=== PATIENT | male | born 1935 | race Caucasian/White ===

== ENCOUNTER 2017-10-08 11:03 | Inpatient (IN) | payer MEDICARE, BC ==
[~2017-10-08] VITALS: Ht 182.9 cm; Wt 84.0 kg
[~2017-10-08 11:03] MED LIST: ACET-2615 PO; ALT5C PO; ASPI-611 PO; CHOL400T PO; CIPR500T24 PO; FENO54TA PO; FLO0.4C PO; LACTC PO; LYSI500T40 PO; MULT-933 PO; OMEG-107 PO; OMEP10CA4 PO; PREG200C PO
[2017-10-08] MEDS ORDERED: normal saline 1000ML IV soln IVB ONE (11:25)
[2017-10-08] MEDS ORDERED: ondansetron/PF 4mg/2ml inj IV ONE (11:25)
[2017-10-08] MEDS ORDERED: bisacodyl 10mg suppository rectal RC STA (11:28)
[2017-10-08 12:08] LABS: BASOPHILS % (AUTO) 0.2 % (0-1); EOSINOPHILS % (AUTO) 0.2 % (0-6); HEMATOCRIT 46.5 % (42.0-52.0); HEMOGLOBIN 15.3 g/dl (14.0-17.9); LYMPHOCYTES # (AUTO) 0.7 X10'3 (1.1-4.8); LYMPHOCYTES % (AUTO) 5.4 % (21-51); MEAN CORPUSCULAR HEMOGLOBIN 27.2 PG (27.0-31.0); MEAN CORPUSCULAR HGB CONC 32.9 % (33.0-36.5); MEAN CORPUSCULAR VOLUME 82.4 FL (78-98); MEAN PLATELET VOLUME 10.5 FL (7.4-10.4); MONOCYTES # (AUTO) 0.1 X10'3 (0-0.9); NEUTROPHILS # (AUTO) 11.3 X10'3 (1.8-7.7); NEUTROPHILS % (AUTO) 93.2 % (42-75); PLATELET COUNT 169 X10'3 (140-440); RED BLOOD COUNT 5.64 X10'6 (4.70-6.10); RED CELL DISTRIBUTION WIDTH 15.8 % (11.5-14.5); WHITE BLOOD COUNT 12.1 X10'3 (4.5-11.0)
[2017-10-08 12:12] LABS: ALANINE AMINOTRANSFERASE 21 U/L (12-78); ALBUMIN 3.6 G/DL (3.4-5.0); ALBUMIN/GLOBULIN RATIO 0.8 (1.1-1.5); ALKALINE PHOSPHATASE 69 IU/L (46-116); ANION GAP 10 (8-16); ASPARTATE AMINO TRANSFERASE 30 U/L (10-37); BILIRUBIN,TOTAL 0.6 MG/DL (0.1-1.0); BLOOD UREA NITROGEN 19 MG/DL (7-18); BUN/CREATININE RATIO 17.8 (5.4-32.0); CALCIUM 9.7 MG/DL (8.5-10.1); CHLORIDE 99 MMOL/L (99-107); CREATININE 1.07 MG/DL (0.60-1.10); GLUCOSE 133 MG/DL (70-104); LIPASE 223 U/L (73-393); SODIUM 135 MMOL/L (135-145); TOTAL CARBON DIOXIDE 26.5 MMOL/L (24-32); eGFR 66 ML/MIN
[2017-10-08 12:20] LABS: POTASSIUM 4.5 MMOL/L (3.5-5.1)
[2017-10-08 12:32] LABS: TOTAL CELLS COUNTED 100
[2017-10-08 12:33] LABS: PLATELET ESTIMATE NORMAL
[2017-10-08 12:35] LABS: ANISOCYTOSIS 1+; LARGE PLATELETS FEW
[2017-10-08 12:36] LABS: TOXIC GRANULATION 1+; TOXIC VACUOLATION 1+
[2017-10-08] MEDS ORDERED: metoclopramide 5 mg/ml inj IV ONE (13:05)
[2017-10-08] MEDS ORDERED: morphine 2 MG/ML inj. syringe IV PRN ×3 (14:00→19:30)
[2017-10-08] MEDS ORDERED: potassium Cl 40MEQ/NS 500ml 500 ML IV PRN ×2 (14:00)
[2017-10-08] MEDS ORDERED: potassium Cl 20 mEq SR tablet PO PRN ×2 (14:00)
[2017-10-08] MEDS ORDERED: magnesium 2GM in 50ml NS 50 ML IV PRN (14:00)
[2017-10-08] MEDS ORDERED: magnesium hydroxide 30ml (MOM) UD suspension PO PRN (14:00)
[2017-10-08] MEDS ORDERED: magnesium 4gm in 100ml NS 100 ML IV PRN (14:00)
[2017-10-08] MEDS ORDERED: magnesium Cl slow-release 64mg tablet PO PRN (14:00)
[2017-10-08] MEDS ORDERED: acetaminophen 650mg rectal suppository RC PRN (14:00)
[2017-10-08] MEDS ORDERED: mag hydrox/Alum hydrox/simeth 30ml oral suspension PO PRN (14:00)
[2017-10-08] MEDS ORDERED: BUPRENORPHINE 5 MCG/HR TP SCH (14:10)
[2017-10-08] MEDS ORDERED: hydrALAZINE 20mg/ml inj. IV PRN (14:20)
[2017-10-08] MEDS ORDERED: morphine 4 MG/ML inj SYRINge IV PRN ×2 (15:12)
[2017-10-08] MEDS: normal saline 1000ml 1,000 ML IV SCH (15:34)
[2017-10-08] MEDS ORDERED: BUPR1PAT3 (17:22)
[2017-10-08] MEDS: ondansetron/PF 4mg/2ml inj IV PRN (18:02)
[2017-10-08 18:52] LABS: CLARITY,URINE CLEAR (Clear); COLOR,URINE YELLOW (Yellow); GLUCOSE, URINE NEGATIVE (Neg); KETONES,URINE NEGATIVE (Neg); LEUKOCYTE ESTERASE ,URINE NEGATIVE (Neg); NITRITES, URINE NEGATIVE (Neg); OCCULT BLOOD,URINE SMALL (Neg); PROTEIN,URINE 30 mg/dl (Neg); UROBILINOGEN,URINE 0.2 E.U/dL (0.2-1.0)
[2017-10-08 18:57] LABS: UA COLLECTION TYPE CLN CATCH MIDSTREAM
[2017-10-08 18:58] LABS: BACTERIA,URINE NONE SEEN /HPF (Neg); RBC,URINE 0-2 /HPF (0-2); SQUAMOUS EPITHELIAL CELL,UR NONE SEEN /LPF (FEW); WBC,URINE 0-4 /HPF (0-4)
[2017-10-08 19:40] LABS: PROTHROMBIN TIME 10.7 SECONDS (9.0-12.0)
[2017-10-08] MEDS: morphine 4 MG/ML inj SYRINge IV PRN ×2 (20:03→22:19)
[2017-10-08] MEDS: heparin, porcine 5000 units/ml vial SQ SCH (20:04)
[2017-10-09] VITALS: BP 156/72
[2017-10-09] MEDS: normal saline 1000ml 1,000 ML IV SCH ×3 (03:16→18:07)
[2017-10-09] MEDS: ondansetron/PF 4mg/2ml inj IV PRN (03:26)
[2017-10-09 05:31] LABS: BASOPHILS % (AUTO) 0.3 % (0-1); EOSINOPHILS # (AUTO) 0.1 X10'3 (0-0.9); HEMATOCRIT 44.7 % (42.0-52.0); HEMOGLOBIN 14.4 g/dl (14.0-17.9); LYMPHOCYTES # (AUTO) 0.8 X10'3 (1.1-4.8); LYMPHOCYTES % (AUTO) 6.4 % (21-51); MEAN CORPUSCULAR HEMOGLOBIN 26.5 PG (27.0-31.0); MEAN CORPUSCULAR HGB CONC 32.3 % (33.0-36.5); MEAN CORPUSCULAR VOLUME 82.2 FL (78-98); MEAN PLATELET VOLUME 9.8 FL (7.4-10.4); MONOCYTES # (AUTO) 0.5 X10'3 (0-0.9); MONOCYTES % (AUTO) 4.5 % (2-12); NEUTROPHILS # (AUTO) 10.3 X10'3 (1.8-7.7); NEUTROPHILS % (AUTO) 87.8 % (42-75); PLATELET COUNT 168 X10'3 (140-440); RED BLOOD COUNT 5.44 X10'6 (4.70-6.10); RED CELL DISTRIBUTION WIDTH 16.2 % (11.5-14.5); WHITE BLOOD COUNT 11.7 X10'3 (4.5-11.0)
[2017-10-09 05:51] LABS: ALANINE AMINOTRANSFERASE 19 U/L (12-78); ALBUMIN/GLOBULIN RATIO 0.8 (1.1-1.5); ALKALINE PHOSPHATASE 58 IU/L (46-116); ANION GAP 8 (8-16); ASPARTATE AMINO TRANSFERASE 24 U/L (10-37); BILIRUBIN,TOTAL 0.7 MG/DL (0.1-1.0); BLOOD UREA NITROGEN 25 MG/DL (7-18); BUN/CREATININE RATIO 20.5 (5.4-32.0); CALCIUM 8.9 MG/DL (8.5-10.1); CHLORIDE 104 MMOL/L (99-107); CREATININE 1.22 MG/DL (0.60-1.10); GLUCOSE 120 MG/DL (70-104); MAGNESIUM 1.6 MG/DL (1.5-2.4); POTASSIUM 4.6 MMOL/L (3.5-5.1); SODIUM 139 MMOL/L (135-145); TOTAL PROTEIN 6.8 G/DL (6.4-8.2); eGFR 57 ML/MIN
[2017-10-09 06:00] VITALS: BP 103/52
[2017-10-09] MEDS: heparin, porcine 5000 units/ml vial SQ SCH ×2 (07:54→20:24)
[2017-10-09] MEDS: K and/or MAG REPLACEMENT MC SCH (07:59)
[2017-10-09] MEDS ORDERED: pneumococcal 23-VAL P-sac vacc 25 mcg/0.5ml vial IMVAC ONE (10:00)
[2017-10-09] MEDS: morphine 4 MG/ML inj SYRINge IV PRN ×4 (15:13→23:40)
[2017-10-09 19:00] VITALS: BP 151/71
[2017-10-10] VITALS: BP 157/75
[2017-10-10] MEDS: morphine 4 MG/ML inj SYRINge IV PRN ×4 (01:53→17:29)
[2017-10-10] MEDS ORDERED: pantoprazole 40 MG vial IV ONE (02:55)
[2017-10-10 04:33] LABS: BASOPHILS % (AUTO) 0.6 % (0-1); EOSINOPHILS # (AUTO) 0.1 X10'3 (0-0.9); EOSINOPHILS % (AUTO) 1.5 % (0-6); HEMATOCRIT 42.2 % (42.0-52.0); LYMPHOCYTES # (AUTO) 1.1 X10'3 (1.1-4.8); LYMPHOCYTES % (AUTO) 12.9 % (21-51); MEAN CORPUSCULAR HEMOGLOBIN 26.9 PG (27.0-31.0); MEAN CORPUSCULAR HGB CONC 33.1 % (33.0-36.5); MEAN CORPUSCULAR VOLUME 81.1 FL (78-98); MONOCYTES # (AUTO) 0.4 X10'3 (0-0.9); MONOCYTES % (AUTO) 4.5 % (2-12); NEUTROPHILS # (AUTO) 6.9 X10'3 (1.8-7.7); NEUTROPHILS % (AUTO) 80.5 % (42-75); PLATELET COUNT 160 X10'3 (140-440); RED CELL DISTRIBUTION WIDTH 16.4 % (11.5-14.5); WHITE BLOOD COUNT 8.6 X10'3 (4.5-11.0)
[2017-10-10 04:47] LABS: ALANINE AMINOTRANSFERASE 21 U/L (12-78); ALBUMIN/GLOBULIN RATIO 0.8 (1.1-1.5); ALKALINE PHOSPHATASE 55 IU/L (46-116); ANION GAP 12 (8-16); ASPARTATE AMINO TRANSFERASE 38 U/L (10-37); BILIRUBIN,TOTAL 0.6 MG/DL (0.1-1.0); BLOOD UREA NITROGEN 24 MG/DL (7-18); BUN/CREATININE RATIO 22.6 (5.4-32.0); CALCIUM 9.4 MG/DL (8.5-10.1); CHLORIDE 105 MMOL/L (99-107); CREATININE 1.06 MG/DL (0.60-1.10); GLUCOSE 78 MG/DL (70-104); MAGNESIUM 1.5 MG/DL (1.5-2.4); POTASSIUM 4.2 MMOL/L (3.5-5.1); SODIUM 141 MMOL/L (135-145); TOTAL PROTEIN 6.9 G/DL (6.4-8.2); eGFR 67 ML/MIN
[2017-10-10] MEDS ORDERED: diatrozoate meglu/diatrozoate sod (37% iodine) 120ML oral solution PO ONE (07:00)
[2017-10-10 07:30] VITALS: BP 163/79
[2017-10-10] MEDS ORDERED: diatr meglu/diatrizoate 30ml oral sol.-(3 dose) bottle PO ONE (07:35)
[2017-10-10] MEDS: heparin, porcine 5000 units/ml vial SQ SCH ×2 (07:40→19:42)
[2017-10-10] MEDS: pantoprazole 40 MG vial IV SCH (07:40)
[2017-10-10] MEDS: K and/or MAG REPLACEMENT MC SCH (07:41)
[2017-10-10] MEDS: normal saline 1000ml 1,000 ML IV SCH ×2 (10:40→14:54)
[2017-10-10 12:17] VITALS: BP 163/69
[2017-10-10] MEDS: pregabalin 75mg capsule PO SCH (19:41)
[2017-10-10] MEDS: pregabalin 25mg capsule PO SCH (19:41)
[2017-10-10 20:00] VITALS: BP 178/80
[2017-10-10] MEDS ORDERED: diphenhydrAMINE 25mg capsule PO PRN (20:35)
[2017-10-10] MEDS ORDERED: methylPREDNISolone sod succ 125mg/2ml vial IV ONE (20:35)
[2017-10-10] MEDS ORDERED: diphenhydrAMINE 50 mg/ml inj IM ONE (20:35)
[2017-10-10 21:00] VITALS: BP 158/78
[2017-10-10] MEDS ORDERED: diphenhydrAMINE 50 mg/ml inj IV ONE (21:00)
[2017-10-11] VITALS: BP 156/75
[2017-10-11] MEDS: morphine 4 MG/ML inj SYRINge IV PRN (00:26)
[2017-10-11] MEDS: normal saline 1000ml 1,000 ML IV SCH (00:32)
[2017-10-11 06:27] LABS: BASOPHILS % (AUTO) 0 % (0-1); EOSINOPHILS % (AUTO) 0.7 % (0-6); HEMATOCRIT 41.3 % (42.0-52.0); HEMOGLOBIN 13.8 g/dl (14.0-17.9); LYMPHOCYTES # (AUTO) 0.6 X10'3 (1.1-4.8); LYMPHOCYTES % (AUTO) 10.1 % (21-51); MEAN CORPUSCULAR HEMOGLOBIN 27.2 PG (27.0-31.0); MEAN CORPUSCULAR HGB CONC 33.3 % (33.0-36.5); MEAN CORPUSCULAR VOLUME 81.5 FL (78-98); MEAN PLATELET VOLUME 10.6 FL (7.4-10.4); MONOCYTES % (AUTO) 0.6 % (2-12); NEUTROPHILS # (AUTO) 4.9 X10'3 (1.8-7.7); NEUTROPHILS % (AUTO) 88.6 % (42-75); PLATELET COUNT 148 X10'3 (140-440); RED BLOOD COUNT 5.07 X10'6 (4.70-6.10); RED CELL DISTRIBUTION WIDTH 15.8 % (11.5-14.5); WHITE BLOOD COUNT 5.6 X10'3 (4.5-11.0)
[2017-10-11 06:33] LABS: ALANINE AMINOTRANSFERASE 23 U/L (12-78); ALBUMIN/GLOBULIN RATIO 0.8 (1.1-1.5); ALKALINE PHOSPHATASE 56 IU/L (46-116); ANION GAP 12 (8-16); ASPARTATE AMINO TRANSFERASE 48 U/L (10-37); BILIRUBIN,TOTAL 0.5 MG/DL (0.1-1.0); BLOOD UREA NITROGEN 19 MG/DL (7-18); BUN/CREATININE RATIO 19.8 (5.4-32.0); CALCIUM 9.3 MG/DL (8.5-10.1); CHLORIDE 106 MMOL/L (99-107); CREATININE 0.96 MG/DL (0.60-1.10); GLUCOSE 149 MG/DL (70-104); MAGNESIUM 1.3 MG/DL (1.5-2.4); POTASSIUM 4.2 MMOL/L (3.5-5.1); SODIUM 143 MMOL/L (135-145); TOTAL PROTEIN 6.9 G/DL (6.4-8.2); eGFR 75 ML/MIN
[2017-10-11] MEDS ORDERED: pantoprazole 40mg Tablet.DR PO SCH (07:30)
[2017-10-11 07:57] LABS: LARGE PLATELETS FEW; PLATELET ESTIMATE NORMAL
[2017-10-11 08:00] VITALS: BP 148/70
[2017-10-11] MEDS ORDERED: tamsulosin 0.4mg capsule PO SCH (08:00)
[2017-10-11] MEDS: pantoprazole 40 MG vial IV SCH (08:00)
[2017-10-11] MEDS ORDERED: fenofibrate 48mg tablet PO SCH (08:00)
[2017-10-11] MEDS: pregabalin 75mg capsule PO SCH (08:19)
[2017-10-11] MEDS: pregabalin 25mg capsule PO SCH (08:19)
[2017-10-11] MEDS: heparin, porcine 5000 units/ml vial SQ SCH (08:21)
[2017-10-11] MEDS: K and/or MAG REPLACEMENT MC SCH (08:38)
[2017-10-12] MEDS ORDERED: BUPRENORPHINE 20 MCG/HR TP SCH (09:00)
[2017-10-12] MEDS ORDERED: [UNRECOGNIZED DRUG - REMARK] TD SCH (09:00)
[2017-10-12] MEDS ORDERED: BUPRENORPHINE 5 MCG/HR TP SCH (09:00)
== END 2017-10-11 13:12 | disposition home or self-care (01) | DRG 394 ==
LOC: ER 11:04 → ED HOLD 13:56 → EDBEDREQ 20:56 → SUR 3N 21:50
PROVIDERS: ADMIT Family Medicine; ATTEND Internal Medicine
PROC: BW211ZZ Computerized Tomography (CT Scan) of Abdomen and Pelvis using Low Osmolar Contrast (ICD-10-PCS; principal; 2017-10-10)
DX: K94.09 Other complications of colostomy (principal); K56.699 Other intestinal obstruction unspecified as to partial versus complete obstruction; G62.9 Polyneuropathy, unspecified; Z95.1 Presence of aortocoronary bypass graft; E78.00 Pure hypercholesterolemia, unspecified; I25.10 Atherosclerotic heart disease of native coronary artery without angina pectoris; I10 Essential (primary) hypertension; J45.909 Unspecified asthma, uncomplicated; Y83.8 Other surgical procedures as the cause of abnormal reaction of the patient, or of later complication, without mention of misadventure at the time of the procedure; I25.2 Old myocardial infarction; Z90.49 Acquired absence of other specified parts of digestive tract; Z91.013 Allergy to seafood; Z88.8 Allergy status to other drugs, medicaments and biological substances; Z80.0 Family history of malignant neoplasm of digestive organs; Z80.6 Family history of leukemia; Z79.82 Long term (current) use of aspirin; Z79.899 Other long term (current) drug therapy
CPT/HCPCS: 36415; 74176; 80053; 81001; 83690; 83735; 85025; 85610; 87070; 93005; 96361; 96374; 99285; A6258; C9113; J1200; J1644; J2270; J2405; J2930; J3475; J7030; Q0163; Q9963

== ENCOUNTER 2018-01-16 12:59 | Emergency (ER) | payer MEDICARE, BC ==
[~2018-01-16] VITALS: Ht 182.9 cm; Wt 72.7 kg
[~2018-01-16 12:59] MED LIST changes: +BUPR1PAT3; -CHOL400T PO; -CIPR500T24 PO
[2018-01-16] MEDS ORDERED: LIDOcaine 1% 30ml preserv. free vial IJ ONE (13:25)
[2018-01-16] MEDS ORDERED: TETanus/Pertussis (Acell)/Diphther VAC/PF (Tdap-Adult) 0.5ml syringe IM ONE (13:25)
[2018-01-16 15:18] VITALS: BP 123/74
== END 2018-01-16 15:26 | disposition home or self-care (01) ==
LOC: ER 12:59
DX: S06.0X0A Concussion without loss of consciousness, initial encounter (principal); S01.81XA Laceration without foreign body of other part of head, initial encounter; W18.30XA Fall on same level, unspecified, initial encounter; Y93.89 Activity, other specified; Y92.89 Other specified places as the place of occurrence of the external cause; Y99.8 Other external cause status
CPT/HCPCS: 12052; 70450; 90471; 90715; 99284; A6449; J3490; 96372

== ENCOUNTER 2018-04-17 10:11 | Observation (INO) | payer MEDICARE, BC ==
[~2018-04-17] VITALS: Ht 182.9 cm; Wt 72.7 kg
[2018-04-17 10:43] LABS: BASOPHILS % (AUTO) 0.1 % (0-1); EOSINOPHILS # (AUTO) 0.2 X10'3 (0-0.9); EOSINOPHILS % (AUTO) 2.2 % (0-6); HEMATOCRIT 48.1 % (42.0-52.0); HEMOGLOBIN 15.5 g/dl (14.0-17.9); LYMPHOCYTES # (AUTO) 0.9 X10'3 (1.1-4.8); LYMPHOCYTES % (AUTO) 9.3 % (21-51); MEAN CORPUSCULAR HEMOGLOBIN 27.5 PG (27.0-31.0); MEAN CORPUSCULAR HGB CONC 32.3 % (33.0-36.5); MEAN CORPUSCULAR VOLUME 85.1 FL (78-98); MEAN PLATELET VOLUME 11.2 FL (7.4-10.4); MONOCYTES # (AUTO) 0.3 X10'3 (0-0.9); MONOCYTES % (AUTO) 3.3 % (2-12); NEUTROPHILS # (AUTO) 8.2 X10'3 (1.8-7.7); NEUTROPHILS % (AUTO) 85.1 % (42-75); PLATELET COUNT 149 X10'3 (140-440); RED BLOOD COUNT 5.65 X10'6 (4.70-6.10); RED CELL DISTRIBUTION WIDTH 15.8 % (11.5-14.5); WHITE BLOOD COUNT 9.6 X10'3 (4.5-11.0)
[2018-04-17 11:03] LABS: INR 1.1 INR; PROTHROMBIN TIME 10.9 SECONDS (9.0-12.0)
[2018-04-17 11:19] LABS: ALANINE AMINOTRANSFERASE 13 U/L (12-78); ALBUMIN 3.6 G/DL (3.4-5.0); ALBUMIN/GLOBULIN RATIO 0.8 (1.1-1.5); ALKALINE PHOSPHATASE 70 IU/L (46-116); ANION GAP 8 (8-16); ASPARTATE AMINO TRANSFERASE 22 U/L (10-37); BILIRUBIN,TOTAL 0.5 MG/DL (0.1-1.0); BLOOD UREA NITROGEN 29 MG/DL (7-18); BUN/CREATININE RATIO 23.4 (5.4-32.0); CHLORIDE 100 MMOL/L (99-107); CREATININE 1.24 MG/DL (0.60-1.10); GLUCOSE 129 MG/DL (70-104); LIPASE 243 U/L (73-393); POTASSIUM 5.1 MMOL/L (3.5-5.1); SODIUM 135 MMOL/L (135-145); TOTAL CARBON DIOXIDE 27.2 MMOL/L (24-32); TOTAL PROTEIN 8.1 G/DL (6.4-8.2); eGFR 56 ML/MIN
[2018-04-17 12:44] LABS: LARGE PLATELETS FEW; PLATELET ESTIMATE NORMAL
[2018-04-17] MEDS ORDERED: magnesium Cl slow-release 64mg tablet PO PRN (12:50)
[2018-04-17] MEDS ORDERED: HYDROcodone/acetaminophen 5mg/325mg tablet PO PRN (12:50)
[2018-04-17] MEDS ORDERED: ondansetron/PF 4mg/2ml inj IV PRN (12:50)
[2018-04-17] MEDS ORDERED: acetaminophen 325mg tablet PO PRN ×2 (12:50)
[2018-04-17] MEDS ORDERED: magnesium 1gm/100ml D5W IVPB 100 ML IV PRN (12:50)
[2018-04-17] MEDS ORDERED: potassium Cl 40MEQ/NS 500ml 500 ML IV PRN ×2 (12:50)
[2018-04-17] MEDS ORDERED: morphine 2 MG/ML inj. syringe IV PRN (12:50)
[2018-04-17] MEDS ORDERED: magnesium 4gm in 100ml NS 100 ML IV PRN (12:50)
[2018-04-17] MEDS ORDERED: mag hydrox/Alum hydrox/simeth 30ml oral suspension PO PRN (12:50)
[2018-04-17] MEDS ORDERED: docusate sod 100mg capsule PO PRN (12:50)
[2018-04-17] MEDS ORDERED: potassium Cl 20 mEq SR tablet PO PRN ×2 (12:50)
[2018-04-17] MEDS: normal saline 1000ml 1,000 ML IV SCH (14:29)
[2018-04-17 15:30] VITALS: BP 103/43
[2018-04-17 18:00] VITALS: BP 104/58
[2018-04-17] MEDS ORDERED: non-formulary drug (Acetaminophen (Tylenol Extra Strength) 2 TAB) PO PRN (18:40)
[2018-04-17] MEDS ORDERED: temazepam 15mg capsule PO PRN (21:00)
[2018-04-17] MEDS: heparin, porcine 5000 units/ml vial SQ SCH (21:28)
[2018-04-17] MEDS: pregabalin 25mg capsule PO SCH (21:29)
[2018-04-18] VITALS: BP 100/48
[2018-04-18] MEDS: normal saline 1000ml 1,000 ML IV SCH (03:22)
[2018-04-18 05:23] LABS: BASOPHILS % (AUTO) 0.7 % (0-1); EOSINOPHILS # (AUTO) 0.4 X10'3 (0-0.9); EOSINOPHILS % (AUTO) 7.1 % (0-6); HEMATOCRIT 43.3 % (42.0-52.0); HEMOGLOBIN 14.2 g/dl (14.0-17.9); LYMPHOCYTES # (AUTO) 1.8 X10'3 (1.1-4.8); LYMPHOCYTES % (AUTO) 30.1 % (21-51); MEAN CORPUSCULAR HEMOGLOBIN 27.5 PG (27.0-31.0); MEAN CORPUSCULAR HGB CONC 32.7 % (33.0-36.5); MEAN PLATELET VOLUME 11.7 FL (7.4-10.4); MONOCYTES # (AUTO) 0.4 X10'3 (0-0.9); NEUTROPHILS # (AUTO) 3.3 X10'3 (1.8-7.7); NEUTROPHILS % (AUTO) 55.1 % (42-75); PLATELET COUNT 152 X10'3 (140-440); RED BLOOD COUNT 5.15 X10'6 (4.70-6.10); RED CELL DISTRIBUTION WIDTH 15.6 % (11.5-14.5)
[2018-04-18 05:25] LABS: ALBUMIN 3.1 G/DL (3.4-5.0); ANION GAP 7 (8-16); BLOOD UREA NITROGEN 31 MG/DL (7-18); BUN/CREATININE RATIO 23.8 (5.4-32.0); CALCIUM 8.9 MG/DL (8.5-10.1); CHLORIDE 104 MMOL/L (99-107); GLUCOSE 97 MG/DL (70-104); MAGNESIUM 1.6 MG/DL (1.5-2.4); POTASSIUM 5.2 MMOL/L (3.5-5.1); SODIUM 135 MMOL/L (135-145); TOTAL CARBON DIOXIDE 24.1 MMOL/L (24-32); eGFR 53 ML/MIN
[2018-04-18 07:15] VITALS: BP 98/54
[2018-04-18 07:30] LABS: LARGE PLATELETS FEW; PLATELET ESTIMATE NORMAL
[2018-04-18] MEDS ORDERED: pantoprazole 40mg Tablet.DR PO SCH (07:30)
[2018-04-18] MEDS: pregabalin 25mg capsule PO SCH (07:35)
[2018-04-18] MEDS: heparin, porcine 5000 units/ml vial SQ SCH (07:35)
[2018-04-18] MEDS ORDERED: tamsulosin 0.4mg capsule PO SCH (08:00)
[2018-04-18] MEDS ORDERED: lisinopril 10 MG tablet PO SCH (08:00)
[2018-04-18] MEDS ORDERED: K and/or MAG REPLACEMENT MC SCH (08:00)
[2018-04-18] MEDS ORDERED: aspirin 81mg tablet.DR PO SCH (08:00)
[2018-04-18] MEDS ORDERED: fenofibrate 48mg tablet PO SCH (08:30)
[2018-04-18 11:43] LABS: CLARITY,URINE CLEAR (Clear); COLOR,URINE YELLOW (Yellow); GLUCOSE, URINE NEGATIVE (Neg); KETONES,URINE NEGATIVE (Neg); LEUKOCYTE ESTERASE ,URINE NEGATIVE (Neg); NITRITES, URINE NEGATIVE (Neg); OCCULT BLOOD,URINE TRACE-LYSED (Neg); PROTEIN,URINE NEGATIVE (Neg); UROBILINOGEN,URINE 0.2 E.U/dL (0.2-1.0)
[2018-04-18 11:44] LABS: UA COLLECTION TYPE URINAL
[2018-04-18 11:49] LABS: BACTERIA,URINE NONE SEEN /HPF (Neg); RBC,URINE NONE SEEN /HPF (0-2); SQUAMOUS EPITHELIAL CELL,UR NONE SEEN /LPF (FEW); WBC,URINE NONE SEEN /HPF (0-4)
[2018-04-18 12:17] VITALS: BP 119/69
== END 2018-04-18 14:39 | disposition home health service (06) ==
LOC: ER 10:12 → ED HOLD 12:46 → SUR 3N 15:43
PROVIDERS: ADMIT Internal Medicine; ATTEND Internal Medicine
DX: K94.03 Colostomy malfunction (principal); K56.7 Ileus, unspecified; J93.9 Pneumothorax, unspecified; I12.9 Hypertensive chronic kidney disease with stage 1 through stage 4 chronic kidney disease, or unspecified chronic kidney disease; N18.3 Chronic kidney disease, stage 3 (moderate); G62.9 Polyneuropathy, unspecified; N40.0 Benign prostatic hyperplasia without lower urinary tract symptoms; J45.909 Unspecified asthma, uncomplicated; I25.2 Old myocardial infarction; G89.4 Chronic pain syndrome; E78.5 Hyperlipidemia, unspecified; F03.90 Unspecified dementia, unspecified severity, without behavioral disturbance, psychotic disturbance, mood disturbance, and anxiety; M85.80 Other specified disorders of bone density and structure, unspecified site; Z87.891 Personal history of nicotine dependence
CPT/HCPCS: 36415; 71045; 71046; 74176; 80048; 80053; 81001; 83605; 83690; 83735; 84484; 85025; 85610; 87040; 87070; 96372; 97116; 97161; 99285; A4421; G0378; J1644; J7030